=== PATIENT | female | born 1950 | race Caucasian/White ===

== ENCOUNTER 2017-05-14 16:33 | Observation (INO) | payer BC, OTHER ==
[2017-05-14] MEDS ORDERED: NITROGLYCERIN SL TABS 0.4 MG TAB SUBLINGUAL STA ×3 (16:58)
[2017-05-14] MEDS ORDERED: ASPIRIN 81 MG PO STA (16:58)
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
[2017-05-14 17:18] LABS: Basophils % (A) 0 %; Eosinophils # (A) 0.3 k/uL (0-0.7); Eosinophils % (A) 3 %; HCT 40.3 % (34.0-46.0); HGB 13.4 gm/dL (11.4-16.0); Lymphocytes # (A) 2.2 k/uL (1.0-4.8); Lymphocytes % (A) 27 %; MCH 30.6 pg (25.0-35.0); MCHC 33.1 g/dL (31.0-37.0); MCV 92.3 fL (80.0-100.0); Mean Platelet Volume 6.8; Monocytes # (A) 0.5 k/uL (0-1.0); Monocytes % (A) 6 %; Neutrophils # (A) 5.1 k/uL (1.3-7.7); Neutrophils % (A) 62 %; Platelet Count 340 k/uL (150-450); RBC 4.36 m/uL (3.80-5.40); RDW 12.6 % (11.5-15.5); WBC 8.3 k/uL (3.8-10.6)
[2017-05-14 17:26] LABS: D-Dimer 0.2 mg/L FEU (<0.60)
[2017-05-14 17:29] LABS: ALT 31 U/L (9-52); AST 22 U/L (14-36); Alkaline Phosphatase 82 U/L (38-126); Anion Gap 9 mmol/L; Blood Urea Nitrogen 12 mg/dL (7-17); Calcium 9.6 mg/dL (8.4-10.2); Carbon Dioxide 24 mmol/L (22-30); Chloride 104 mmol/L (98-107); Glucose 86 mg/dL (74-99); Magnesium 1.6 mg/dL (1.6-2.3); Sodium 137 mmol/L (137-145); Total Bilirubin 0.3 mg/dL (0.2-1.3); Total Protein 6.5 g/dL (6.3-8.2)
[2017-05-14 17:30] LABS: Potassium 4.2 mmol/L (3.5-5.1)
[2017-05-14 17:34] LABS: Creatine Kinase 126 U/L (30-135)
[2017-05-14 17:46] LABS: Creatine Kinase MB 1.2 ng/mL (0.0-2.4); Troponin I <0.012 ng/mL (0.000-0.034)
[2017-05-14 17:57] LABS: Partial Thromboplastin Time 25.8 sec (22.0-30.0); Prothrombin Time 9.8 sec (9.0-12.0)
--- NOTE | 2017-05-14 18:37 | XR ---
EXAMINATION: XR chest 2V DATE AND TIME: 05/14/2017 6:11 PM ORDERING PROVIDER: Reece Burnham DO CLINICAL INDICATION: Chest Pain TECHNIQUE: PA and lateral COMPARISON: None. DESCRIPTION: The lungs are clear. The pleural spaces are negative. Sutures and mediastinal clips and EKG leads noted. The cardiac silhouette is mildly enlarged. The med iastinal and pleural silhouettes are unremarkable. The skeletal structures are intact without focal findings. The soft tissues are unremarkable. IMPRESSION: 1. NO ACUTE PROCESS. 2. Mildly enlarged cardiac silhouette with sternal sutures and mediastinal clips.
[2017-05-14] MEDS ORDERED: NITROGLYCERIN SL TABS 0.4 MG TAB SUBLINGUAL PRN (18:48)
[2017-05-14 20:47] VITALS: BMI 38.2
[2017-05-14 23:10] LABS: Creatine Kinase 96 U/L (30-135)
[2017-05-14] MEDS ORDERED: HYDROcodone/APAP 7.5-325MG 1 EACH TAB PO PRN (23:12)
[2017-05-14 23:22] LABS: Creatine Kinase MB 0.9 ng/mL (0.0-2.4); Troponin I <0.012 ng/mL (0.000-0.034)
[2017-05-14] MEDS: ATENOLOL 25 MG TAB PO SCH (23:41)
[2017-05-14] MEDS: FLECAINIDE 50 MG TAB PO SCH (23:42)
[2017-05-14] MEDS: APIXABAN 5 MG TAB PO SCH (23:42)
[2017-05-14] MEDS: metFORMIN 500 MG TAB PO SCH (23:42)
[2017-05-15] MEDS ORDERED: ALPRAZolam 0.25 MG TAB PO PRN (00:50)
[2017-05-15] MEDS ORDERED: TEMAZEPAM 15 MG CAP PO PRN (00:50)
[2017-05-15] MEDS ORDERED: DENOSUMAB 60 MG/ML 1 ML SYRINGE SQ SCH (01:00)
[2017-05-15] MEDS ORDERED: EVOLOCUMAB 140 MG SQ SCH (01:00)
[2017-05-15] MEDS: NITROGLYCERIN OINT 1 INCH/GM PACKET TOPICAL SCH ×3 (03:20→12:32)
[2017-05-15 04:56] LABS: Creatine Kinase 83 U/L (30-135)
[2017-05-15 05:02] LABS: Cholesterol 127 mg/dL (<200); HDL Cholesterol 69 mg/dL (40-60); LDL Cholesterol,Calculated 45 mg/dL (0-99); Triglycerides 64 mg/dL (<150)
[2017-05-15 05:08] LABS: Creatine Kinase MB 0.7 ng/mL (0.0-2.4); Troponin I <0.012 ng/mL (0.000-0.034)
--- NOTE | 2017-05-15 05:34 | HP ---
HISTORY AND PHYSICAL DATE OF SERVICE: 05/14/2017 CHIEF COMPLAINT: Chest pain. HISTORY OF PRESENT ILLNESS: This 66-year-old woman with a past history of asthma, atrial fibrillation, chest pain, CVA, GERD, hypertension, hyperlipidemia, history of ASD repair being followed by Dr. Quijano in the outpatient setting complaining of chest pain since this morning. The pain is waxing and waning and in the central part of the chest, left-sided chest and the pain is also associated with EKG changes. The patient was taken to emergency room and was admitted for further evaluation. Pain intensity was 6 out of 10. Otherwise, there is no history any fevers, rigors, chills at this time. The EKG shows some ST-T changes. The patient also reports significant stress associated with work at this time. There is no history of fever, rigors, chills at this time. PAST MEDICAL HISTORY: Atrial fibrillation, asthma, ASD repair, GERD, hypertension, hyperlipidemia, history of diarrhea, history of stroke. MEDICATIONS: Prior to admission home medications are: 1. Glucophage 500 mg p.o. b.i.d. 2. Lamisil 250 mg. 3. Aldactone 25 mg p.o. daily. 4. Nifedipine ER 30 mg p.o. daily. 5. Multivitamins 1 p.o. daily. 6. Mobic 50 mg p.r.n. 7. [place] 7.5 q.6h p.r.n. 8. Advair 250, 1 puff b.i.d. 9. Tambocor 50 mg p.o. b.i.d. 10.Prozac 40 mg p.o. daily. 11.Repatha 140 mg subcu 14 days. 12.Nexium 40 mg p.o. daily. 13.Prolia 1 dose 180 days. 14.Vitamin B12 500 mcg p.o. daily. 15.Vitamin D3 2000 daily. 16.Calcium 600 mg p.o. daily. 17.Tenormin 25 mg p.o. b.i.d. 18.Aspirin 81 mg p.o. daily. 19.Eliquis 5 mg p.o. b.i.d. ALLERGIES: BEE VENOM and TETRACYCLINE. FAMILY HISTORY: History of cerebrovascular accident and transient ischemic attack in the family. SOCIAL HISTORY: No history of smoking, no history of alcohol. REVIEW OF SYSTEMS: ENT: No diminished hearing or vision. CARDIOVASCULAR: As mentioned. RESPIRATORY: As mentioned. GI: No nausea. : No dysuria. NERVOUS SYSTEM: No numbness or weakness. ALLERGY/IMMUNOLOGY: As mentioned. MUSCULOSKELETAL: As mentioned. HEMATOLOGY: No history of anemia. ENDOCRINE: As mentioned earlier. CONSTITUTIONAL: As mentioned earlier. DERMATOLOGY: Negative. RHEUMATOLOGY: Negative. PSYCHIATRY: As mentioned earlier. PHYSICAL EXAMINATION: The patient is alert and oriented x3. Pulse 73, blood pressure 140/70, respiration 17, temperature 98 degrees, pulse ox 97% on room air. HEENT: Conjunctivae normal. NECK: No jugular venous distention. CARDIOVASCULAR: S1, S2. RESPIRATORY: Breath sounds diminished in the bases. No rhonchi, no crackles. ABDOMEN: Soft, nontender. No mass palpable. LEGS: No edema, no swelling. NERVOUS SYSTEM: Higher function as mentioned earlier. Moves all four limbs. No focal motor deficits. LYMPHATICS: No lymphadenopathy in the neck, axillae, groin. SKIN: No ulcers, rash, bleeding. LAB STUDIES: CBC and BMP within normal limits. EKG noted. ASSESSMENT: 1. Chest pain possible unstable angina. 2. History atrial fibrillation. 3. History of ASD repair. 4. History of asthma. 5. History of cerebrovascular accident, transient ischemic attack. 6. Gastroesophageal reflux disease. 7. Hypertension. 8. Hyperlipidemia. 9. History of social stressors. 10.History of diarrhea. 11.History of possible von Willebrand disease. 12.History of breast surgery. 13.History of motion sickness. 14.History of depression. RECOMMENDATIONS AND DISCUSSION: This 66-year-old woman who presented with multiple complex medical issues, will monitor the patient closely. Continue the current management and symptomatic treatment. Will will resume the home medications. Cardiology consultation to rule out myocardial infarction. Otherwise I would also recommend the possible stress test also. The patient's medical technologist chemistry is Dr. Haywood from [place] according to her. Otherwise D-dimer is also negative. I would recommend UA with micro. Prognosis guarded because of multiple complex medical issues. Further recommendations to follow. Copy of dictation forwarded to Dr. Quijano who is the primary physician. Discussed with the patient and understands and agrees. MMODL / IJN: [id number] /
[2017-05-15] MEDS ORDERED: PANTOPRAZOLE 40 MG TABLET PO SCH (07:30)
[2017-05-15] MEDS ORDERED: SYMBICORT 80-4.5 MCG INHALER INHALATION SCH (08:00)
[2017-05-15] MEDS ORDERED: REGADENOSON 0.4 MG/5 ML SYRINGE IV ONE (08:44)
[2017-05-15] MEDS ORDERED: AMINOPHYLLINE 500 MG/20 ML VIAL IV PRN (08:44)
[2017-05-15 08:52] LABS: Amorphous Sediment,Urine Rare /hpf; Appearance,Urine Cloudy (Clear); Bacteria,Urine Many /hpf; Bilirubin,Urine Negative (Negative); Blood,Urine Trace (Negative); Color,Urine Yellow; Glucose,Urine (UA) Negative (Negative); Ketones,Urine Negative (Negative); Leukocyte Esterase,Urine Small (Negative); Mucus,Urine Occasional /hpf; Nitrite,Urine Positive (Negative); PH, Urine 6.5 (5.0-8.0); Protein,Urine Negative (Negative); RBC,Urine 3 /hpf (0-5); Specific Gravity,Urine 1.012 (1.001-1.035); Squamous Epithelial Cell,Urine 2 /hpf (0-4); Urobilinogen,Urine <2.0 mg/dL (<2.0); WBC,Urine 5 /hpf (0-5)
[2017-05-15] MEDS ORDERED: SPIRONOLACTONE 25 MG TAB PO SCH (09:00)
[2017-05-15] MEDS ORDERED: MELOXICAM 7.5 MG TAB PO SCH (09:00)
[2017-05-15] MEDS ORDERED: TERBINAFINE 250 MG TAB PO SCH (09:00)
[2017-05-15] MEDS ORDERED: MULTIVITAMINS, THERA 1 EACH TAB PO SCH (09:00)
[2017-05-15] MEDS ORDERED: FLUoxetine HCL 20 MG CAP PO SCH (09:00)
[2017-05-15] MEDS ORDERED: CALCIUM CARBONATE 500 MG CHEWABLE PO SCH (09:00)
[2017-05-15] MEDS ORDERED: NIFEdipine XL 30 MG TAB.ER.24 PO SCH (09:00)
[2017-05-15] MEDS ORDERED: CHOLECALCIFEROL 1,000 UNIT TAB PO SCH (09:00)
[2017-05-15] MEDS ORDERED: ASPIRIN 325 MG TAB PO SCH (09:00)
[2017-05-15] MEDS ORDERED: CYANOCOBALAMIN 500 MCG TAB PO SCH (09:00)
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
[2017-05-15] MEDS ORDERED: AMINOPHYLLINE 500 MG/20 ML VIAL IV ONE (10:45)
[2017-05-15] MEDS: INSULIN ASPART 100 UNIT/ML 1 ML 10 ML VIAL SQ SCH ×2 (12:07→12:32)
--- NOTE | 2017-05-15 12:20 | EST ---
EXERCISE STRESS DATE OF SERVICE: 05/15/2017 AGE: 66 SEX: Female HT: 64" WT: 223 pounds PROTOCOL: Lexiscan Cardiolite STAGE: DURATION OF EXERCISE: HEART RATE REST: 62 BLOOD PRESSURE REST: 155/78 MAXIMUM HEART RATE ACHIEVED: 78 MAXIMUM BLOOD PRESSURE: 174/92 85% MPHR: 133 100% MPHR: 156 METS: INDICATIONS: Chest pressure. CLINICAL INFORMATION: Baseline EKG revealed normal sinus rhythm without significant ST-T changes. With Lexiscan administration, heart rate changed from 62 to 78 beats per minute. Blood pressure changed from 150/78 to 174/92, and then came back to baseline. EKG was unremarkable. Patient did not have any significant symptoms. By EKG criteria, this is an unremarkable Lexiscan stress test. The nuclear scan results, which are more pertinent, will be reported by the radiologist. SUJEY / SEBASTIEN: [id number] /
[2017-05-15] MEDS: FLECAINIDE 50 MG TAB PO SCH (12:31)
[2017-05-15] MEDS: APIXABAN 5 MG TAB PO SCH (12:31)
[2017-05-15] MEDS: ATENOLOL 25 MG TAB PO SCH (12:31)
[2017-05-15] MEDS: metFORMIN 500 MG TAB PO SCH (12:32)
--- NOTE | 2017-05-15 12:40 | NM ---
EXAMINATION TYPE: NM stress lexiscan cardiolite DATE OF EXAM: 05/15/2017 COMPARISON: NONE HISTORY: Chest pain TECHNIQUE: After the intravenous administration of 10.3 mCi Tc 99m Sestamibi - Cardiolite resting SP ECT images acquired 45 minutes post injection. The patient received 0.4mg Lexiscan, 26.6 mCi Tc 99m Sestamibi - Stress images obtained [address] injection FINDINGS: Review of stress and rest SPECT images demonstrates no distinct perfusion abnormality. Gated analysi s shows normal wall motion with an estimated left ventricular ejection fraction of 70 %. IMPRESSION: No scintigraphic evidence for reversible ischemia.
[2017-05-15 13:13] VITALS: BP 152/78; PULSE 73; RESP 17; TEMP 97.9
[2017-05-15 15:17] LABS: Hemoglobin A1C 5.8 % (4.0-6.0)
--- NOTE | 2017-05-16 05:28 | DS ---
DISCHARGE SUMMARY DATE OF SERVICE: 05/15/2017. FINAL DIAGNOSES: 1. Chest pain, possibly musculoskeletal, negative stress test. 2. History atrial fibrillation. 3. History ASD repair. 4. History of asthma. 5. History of cerebrovascular accident, transient ischemic attack. 6. History of gastroesophageal reflux disease. 7. Hypertension. 8. Hyperlipidemia. 9. Social stressors. 10.History of diarrhea. 11.History of possible von Willebrand disease. 12.History of breast surgery. 13.History of motion sickness. 14.History of depression. DISCHARGE DISPOSITION: The patient will be discharged in stable condition with guarded prognosis. Discharge cleared by Cardiology. HISTORY OF PRESENT ILLNESS: This 66-year-old woman with a past medical history of multiple medical problems admitted with chest pain. Myocardial infarction ruled out. Cardiology performed a stress test, which was Lexiscan stress test was negative and the patient is being discharged in a stable condition with guarded prognosis. On exam, vitals are stable. CARDIOVASCULAR: S1 and S2 muffled. ABDOMEN: Soft. NERVOUS SYSTEM: No focal deficits. DISCHARGE ADVICE AND MEDICATIONS: 1. Diet is cardiac. 2. Activity limited until followup. 3. Follow up with Dr. Quijano in 2 to 3 days. 4. Follow up with Cardiology as recommended. MEDICATIONS: 1. Eliquis 5 mg p.o. b.i.d. 2. Aspirin 81 mg p.o. daily. 3. Tenormin 25 mg p.o. b.i.d. 4. Calcium carbonate 600 mg p.o. daily. 5. Vitamin D3, 2000 daily. 6. Vitamin B-12, 500 mcg p.o. daily. 7. Prolia 60 mg q.180 days. 8. Esomeprazole 40 mg p.o. daily. 9. Evolocumab 140 mg subcu 14 days. 10.Tambocor 50 mg p.o. b.i.d. 11.Prozac 40 mg p.o. daily. 12.Fluticasone, Advair, 1 puff . 13.Terrell 7.5 q.6 p.r.n. 14.Mobic 15 mg p.o. daily. 15.Glucophage 500 mg p.o. b.i.d. 16.Multivitamins with calcium 1 p.o. daily. 17.Nifedipine ER 30 mg p.o. daily. 18.Aldactone 25 mg p.o. daily. 19.Lamisil 250 mg p.o. daily. Once again, the patient will be discharged in stable condition with guarded prognosis. SUJEY / SEBASTIEN: [id number] / MTDD
--- NOTE | 2017-05-16 11:28 | ECHOF ---
Referral Reason:cp MEASUREMENTS -------- HEIGHT: 162.6 cm WEIGHT: 101.2 kg BP: 145/84 RVIDd: 3.4 cm (< 3.3) IVSd: 1.2 cm (0.6 - 1.1) LVIDd: 4.5 cm (3.9 - 5.3) LVPWd: 1.2 cm (0.6 - 1.1) IVSs: 1.5 cm LVIDs: 3.2 cm LVPWs: 1.6 cm LA Diam: 4.0 cm (2.7 - 3.8) LAESV Index (A-L): 31.55 ml/m Ao Diam: 3.4 cm (2.0 - 3.7) AV Cusp: 1.9 cm (1.5 - 2.6) MV EXCURSION: 12.842 mm (> 18.000) MV EF SLOPE: 38 mm/s (70 - 150) EPSS: 1.0 cm MV E Satish: 0.73 m/s MV DecT: 484 ms MV A Satish: 0.98 m/s MV E/A Ratio: 0.74 RAP: 5.00 mmHg RVSP: 35.64 mmHg FINDINGS -------- Sinus rhythm. This was a technically good study. The left ventricular size is normal. There is borderline concentric left ventricular hypertrophy. Overall left ventricular systolic function is normal with, an EF between 55 - 60 %. The right ventricle is mildly enlarged. LA is midly dilated 29-33ml/m2. The right atrium is normal in size. Thickend atrial septum. History of ASD repair There is mild aortic valve sclerosis. The mitral valve leaflets are mildly thickened. Mild mitral annular calcification present. There is trace to mild mitral regurgitation. Mild tricuspid regurgitation present. There is mild pulmonary hypertension. The right ventricular systolic pressure, as measured by Doppler, is 35.64mmHg. Trace/mild (physiologic) pulmonic regurgitation. The aortic root size is normal. Normal inferior vena cava with normal inspiratory collapse consistent with estimated right atrial pre ssure of 5 mmHg. There is no pericardial effusion. CONCLUSIONS -------- 1. Sinus rhythm. 2. This was a technically good study. 3. The left ventricular size is normal. 4. There is borderline concentric left ventricular hypertrophy. 5. Overall left ventricular systolic function is normal with, an EF between 55 - 60 %. 6. The right ventricle is mildly enlarged. 7. LA is midly dilated 29-33ml/m2. 8. The right atrium is normal in size. 9. Thickend atrial septum. History of ASD repair 10. There is mild aortic valve sclerosis. 11. The mitral valve leaflets are mildly thickened. 12. Mild mitral annular calcification present. 13. There is trace to mild mitral regurgitation. 14. Mild tricuspid regurgitation present. 15. There is mild pulmonary hypertension. 16. The right ventricular systolic pressure, as measured by Doppler, is 35.64mmHg. 17. Trace/mild (physiologic) pulmonic regurgitation. 18. The aortic root size is normal. 19. Normal inferior vena cava with normal inspiratory collapse consistent with estimated right atrial pressure of 5 mmHg. 20. There is no pericardial effusion. WAREHOUSE ORDER SELECTOR: Shadia Mccarthy RDCS
== END 2017-05-15 15:41 | disposition home or self-care (01) ==
LOC: EC 16:33 → 3OBS 18:48
PROVIDERS: ADMIT Hospitalist; ATTEND Hospitalist
DX: R07.89 Other chest pain (principal); I48.0 Paroxysmal atrial fibrillation; J45.909 Unspecified asthma, uncomplicated; K21.9 Gastro-esophageal reflux disease without esophagitis; I10 Essential (primary) hypertension; E78.5 Hyperlipidemia, unspecified; R19.7 Diarrhea, unspecified; R06.02 Shortness of breath; R20.2 Paresthesia of skin; F32.9 Major depressive disorder, single episode, unspecified; Z86.73 Personal history of transient ischemic attack (TIA), and cerebral infarction without residual deficits; F43.9 Reaction to severe stress, unspecified; R94.31 Abnormal electrocardiogram [ECG] [EKG]; R61 Generalized hyperhidrosis; R06.00 Dyspnea, unspecified; Z95.1 Presence of aortocoronary bypass graft; Z87.74 Personal history of (corrected) congenital malformations of heart and circulatory system; Z79.82 Long term (current) use of aspirin; Z79.51 Long term (current) use of inhaled steroids; Z79.899 Other long term (current) drug therapy; Z79.84 Long term (current) use of oral hypoglycemic drugs; Z79.01 Long term (current) use of anticoagulants; Z79.1 Long term (current) use of non-steroidal anti-inflammatories (NSAID); Z88.1 Allergy status to other antibiotic agents; Z91.030 Bee allergy status
CPT/HCPCS: 99285; 36415; 94640; 93005; 93017; 93306; 85379; 83880; 80061; 80053; 82550 ×2; 82553 ×2; 83735; 84484 ×2; 85025; 85610; 85730; 81001; 83036; 71046; 78452; G0378 ×2; A9500; J0280; J2785; J0897

== ENCOUNTER → 2017-06-08 | Outpatient (CLI) | payer OTHER ==
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
== END | disposition home or self-care (01) ==
LOC: RADXRMAIN 14:54
PROVIDERS: ATTEND Physician Assistant
DX: S22.41XA Multiple fractures of ribs, right side, initial encounter for closed fracture (principal)

== ENCOUNTER → 2017-07-31 | Outpatient (CLI) | payer OTHER ==
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
== END | disposition home or self-care (01) ==
LOC: RADXRMAIN 16:58
PROVIDERS: ATTEND Internal Medicine
DX: S22.43XD Multiple fractures of ribs, bilateral, subsequent encounter for fracture with routine healing (principal); M95.4 Acquired deformity of chest and rib
CPT/HCPCS: 71111

== ENCOUNTER → 2017-08-06 | Outpatient (CLI) | payer BC, OTHER ==
[~2017-08-06] MED LIST: DENOSUMAB 60 MG/ML 1 ML SYRINGE SQ ONE
[2017-08-06 10:00] VITALS: BP 147/84; PULSE 80; RESP 16; TEMP 98
== END | disposition home or self-care (01) ==
LOC: PROCWHC3 09:44
PROVIDERS: ATTEND Internal Medicine
DX: M81.0 Age-related osteoporosis without current pathological fracture (principal)
CPT/HCPCS: 96372; J0897

== ENCOUNTER → 2017-09-19 | Outpatient (CLI) | payer BC, OTHER ==
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
== END | disposition home or self-care (01) ==
LOC: RADXRMAIN 12:30
PROVIDERS: ATTEND Internal Medicine
DX: M95.4 Acquired deformity of chest and rib (principal); J98.11 Atelectasis; J92.9 Pleural plaque without asbestos
CPT/HCPCS: 71110

== ENCOUNTER 2017-10-17 06:45 | Day surgery (SDC) | payer BC, OTHER ==
[2017-10-15 15:32] VITALS: BMI 37.9
[~2017-10-17 06:45] MED LIST changes: -DENOSUMAB 60 MG/ML 1 ML SYRINGE SQ ONE; +LACTATED RINGERS 1,000 ML IV SCH; +LIDOCAINE 1% 20 ML VIAL (10MG/ML) FOR IV START INTRADERMA PRN
[2017-10-17 07:28] VITALS: TEMP 98.6
[2017-10-17 07:37] LABS: Glucose,Whole Blood 119 mg/dL (75-99)
[2017-10-17] MEDS ORDERED: LIDOCAINE 1% INJ 10MG/ML (20 ML MDV) ONE (07:39)
[2017-10-17] MEDS ORDERED: PROPOFOL 10 MG/ML 20 ML VIAL IV ONE (07:39)
--- NOTE | 2017-10-17 08:11 | P.PCN ---
Date of Procedure: 10/17/17 Procedure(s) Performed: Brief history: Patient is a pleasant 66-year-old white female, scheduled for an elective upper endoscopy as well as colonoscopy as a part of evaluation of evaluation of long- standing history of GERD and Hemoccult-positive stool. She is being maintained on Nexium 20 mg daily for several years. Procedure performed: Esophagogastroduodenoscopy with biopsy Colonoscopy with snare polypectomy Preoperative diagnosis: GERD Hemoccult-positive stool Anesthesia: MAC Procedure: After informed consent was obtained from the patient was brought into the endoscopy unit and IV sedation was administered by anesthesia under continuous monitoring. Initially upper endoscopy was done. The Olympus GF 160 video endoscope was inserted inserted into the mouth and esophagus intubated without any difficulty and was gradually advanced into the stomach and duodenum and carefully examined. The bulb and second part of the duodenum appeared normal. The scope was then withdrawn into the stomach adequately insufflated with air and upon careful examination the antrum had a small submucosal polyp measuring 5 mm in size which was biopsied. There are multiple small gastric polyps were seen between 5 mm to 1 cm in size noted in the gastric body some of which were biopsied. The cardia and fundus appeared normal. The scope was then withdrawn into the esophagus. Very small sliding Hiatal hernia noted. The GE junction was located at 40 cm to the incisors. It appeared regular with no erythema erosions or ulcerations. Rest of the esophagus appeared normal. Patient tolerated the procedure well. At this time the patient continued to remain sedation. Initial digital rectal examination was normal. Olympus CF 160 video colonoscope was then inserted into the rectum and gradually advanced to the cecum without any difficulty. Careful examination was performed as the scope was gradually being withdrawn. The prep was excellent. In the base of the cecum there was a 5 mm and 7 mm sessile polyp status post polypectomy. The cecum, ascending colon, transverse colon, appeared normal. In the descending colon there was a 1.5 cm broad-based polyp removed by snare polypectomy. In the sigmoid colon there was a 5 mm polyp removed by snare polypectomy. Moderate sigmoid diverticula seen. Rest of the descending colon, sigmoid colon and rectum appeared normal. Retroflexion was performed in the rectum and no lesions were noted. Patient tolerated the procedure well. Impression: 1. Upper endoscopy revealed multiple small gastric polyps and small hiatal hernia 2. Colonoscopy revealed: a) 5 mm and 7 mm sessile cecal polyp status post polypectomy b) 1.5 cm broad-based descending colon polyp status post polypectomy c) 5 mm sigmoid colon polyp status post polypectomy d) scattered sigmoid diverticulosis Recommendations: Findings of this examination were discussed with the patient as well as her family. She was advised to follow with the biopsy results. If the biopsy shows a tubal adenoma, she can have a repeat colonoscopy in 3 years. She will continue with Nexium 20 mg daily and follow anti-reflex measures, GERD symptoms
[2017-10-17 08:32] VITALS: BP 147/81; PULSE 65; RESP 18
[2017-10-17] MEDS ORDERED: ONDANSETRON 4 MG/2 ML VIAL IVP ONE ×2 (09:00→09:25)
== END 2017-10-17 10:01 | disposition home or self-care (01) ==
LOC: ORWHC2ENDO 06:45
PROVIDERS: ATTEND Internal Medicine Gastroenterology
DX: D12.4 Benign neoplasm of descending colon (principal); D12.0 Benign neoplasm of cecum; K29.50 Unspecified chronic gastritis without bleeding; K21.9 Gastro-esophageal reflux disease without esophagitis; K44.9 Diaphragmatic hernia without obstruction or gangrene; K57.30 Diverticulosis of large intestine without perforation or abscess without bleeding; I10 Essential (primary) hypertension; E78.5 Hyperlipidemia, unspecified; J44.9 Chronic obstructive pulmonary disease, unspecified; K31.7 Polyp of stomach and duodenum; E11.9 Type 2 diabetes mellitus without complications; M19.90 Unspecified osteoarthritis, unspecified site; F32.9 Major depressive disorder, single episode, unspecified; Z79.84 Long term (current) use of oral hypoglycemic drugs; Z79.01 Long term (current) use of anticoagulants; Z79.1 Long term (current) use of non-steroidal anti-inflammatories (NSAID); Z79.899 Other long term (current) drug therapy; Z95.1 Presence of aortocoronary bypass graft; Z86.73 Personal history of transient ischemic attack (TIA), and cerebral infarction without residual deficits
CPT/HCPCS: 88305; 45385; 43239; J2405; J2001; J2704

== ENCOUNTER 2018-10-05 09:35 | Emergency (ER) | payer BC, MEDICARE, OTHER ==
[2018-10-05] MEDS ORDERED: DEXAMETHASONE SOD PHOSPHATE 4 MG/ML 1 ML VIAL IV STA (09:44)
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
[2018-10-05] MEDS ORDERED: CLINDAMYCIN 300 MG in DEXTROSE 5% IN WATER 50 ML IVPB STA ×2 (09:47)
[2018-10-05 10:26] LABS: Basophils % (A) 0 %; Eosinophils # (A) 0.3 k/uL (0-0.7); Eosinophils % (A) 2 %; HGB 14.4 gm/dL (11.4-16.0); Lymphocytes % (A) 14 %; MCH 32.3 pg (25.0-35.0); MCHC 33.6 g/dL (31.0-37.0); MCV 96.4 fL (80.0-100.0); Mean Platelet Volume 6.3; Monocytes # (A) 0.8 k/uL (0-1.0); Monocytes % (A) 6 %; Neutrophils # (A) 11.1 k/uL (1.3-7.7); Neutrophils % (A) 77 %; Platelet Count 330 k/uL (150-450); RBC 4.47 m/uL (3.80-5.40); RDW 12.8 % (11.5-15.5); WBC 14.4 k/uL (3.8-10.6)
[2018-10-05 10:38] LABS: African American GFR (CKD) >90 (>60 ml/min/1.73 sqM); Albumin 3.6 g/dL (3.5-5.0); Anion Gap 8 mmol/L; Blood Urea Nitrogen 9 mg/dL (7-17); Calcium 9.3 mg/dL (8.4-10.2); Carbon Dioxide 24 mmol/L (22-30); Chloride 105 mmol/L (98-107); Glucose 113 mg/dL (74-99); Non-African American GFR(CKD) >90 (>60 ml/min/1.73 sqM); Sodium 137 mmol/L (137-145); Total Bilirubin 0.8 mg/dL (0.2-1.3); Total Protein 6.3 g/dL (6.3-8.2)
[2018-10-05 10:41] LABS: ALT 25 U/L (9-52); AST 30 U/L (14-36); Alkaline Phosphatase 70 U/L (38-126); Potassium 4.4 mmol/L (3.5-5.1)
--- NOTE | 2018-10-05 11:08 | CT ---
EXAMINATION TYPE: CT soft tissue neck w con DATE OF EXAM: 10/05/2018 10:57 AM COMPARISON: None HISTORY: Rt Neck pain and swelling CT DLP: 244.6 mGycm Automated exposure control for dose reduction was used. CONTRAST: CT scan of the neck is performed following with IV Contrast, patient injected with 100 mL of Isovue 3 00. Axial images are obtained, coronal and sagittal reformatted images are reviewed. FINDINGS: Lung apices are clear. Hypertrophic and degenerative change of the vertebral column. Athero sclerotic change of the carotid vasculature. There is asymmetric appearance of the right submandibular gland which appears to be enlarged. Right p eritonsillar fullness on the right is also noted. Area of low attenuation on axial image 54 in the ri ght peritonsillar region measuring 11 mm which could been the basis of a small peritonsillar abscess or necrotic lesion. Shotty adenopathy noted in the right carotid space measuring short axis is 8 mm. Parotid gland has a normal appearance. Thyroid gland enhances normally. Nasopharynx is symmetric. Int raorbital and intracranial structures visualized are symmetric. Airways patent. Subcentimeter right t hyroid nodule noted. Sternotomy wires are noted. IMPRESSION: 1. There is asymmetric right peritonsillar soft tissue fullness within 11 mm area of reduced attenuat ion on axial image 54 which could represent a peritonsillar abscess. Necrotic neoplasm in the differe ntial diagnosis. Correlate clinically. 2. There is asymmetric enlargement of the right submandibular gland correlate for sialoadenitis.
[2018-10-05 12:28] VITALS: BP 145/87; PULSE 75; RESP 13
[2018-10-05 12:52] VITALS: TEMP 97.6
== END 2018-10-05 12:45 | disposition home or self-care (01) ==
LOC: EC 09:35
DX: J36 Peritonsillar abscess (principal); G52.3 Disorders of hypoglossal nerve; F32.9 Major depressive disorder, single episode, unspecified; K21.9 Gastro-esophageal reflux disease without esophagitis; J45.909 Unspecified asthma, uncomplicated; I10 Essential (primary) hypertension; E78.5 Hyperlipidemia, unspecified; I48.91 Unspecified atrial fibrillation; I25.119 Atherosclerotic heart disease of native coronary artery with unspecified angina pectoris; E11.9 Type 2 diabetes mellitus without complications; D68.0 Von Willebrand disease; Z79.01 Long term (current) use of anticoagulants; Z79.82 Long term (current) use of aspirin; Z79.51 Long term (current) use of inhaled steroids; Z79.84 Long term (current) use of oral hypoglycemic drugs; Z79.899 Other long term (current) drug therapy; Z88.1 Allergy status to other antibiotic agents; Z91.030 Bee allergy status; Z95.1 Presence of aortocoronary bypass graft; Z96.643 Presence of artificial hip joint, bilateral; Z86.73 Personal history of transient ischemic attack (TIA), and cerebral infarction without residual deficits
CPT/HCPCS: 96365; 96375; 99284; 36415; 80053; 85025; 87081; 87430; 70491; J1100; Q9967

== ENCOUNTER → 2020-05-03 | Outpatient (CLI) | payer MEDICARE, OTHER ==
--- NOTE | 2020-05-04 14:52 | MM ---
Reason for exam: screening (asymptomatic). Last mammogram was performed 9 years and 1 month ago. History: Reductions of both breasts, 1997. Physical Findings: A clinical breast exam by your physician is recommended on an annual basis and results should be correlated with mammographic findings. MG 3D Screening Mammo W/Cad Bilateral CC and MLO view(s) were taken. Prior study comparison: April 13, 2011, bilateral digital screening mammo w/CAD. The breast tissue is almost entirely fat. No significant changes when compared with prior studies. ASSESSMENT: Benign, BI-RAD 2 RECOMMENDATION: Routine screening mammogram of both breasts in 1 year.
== END | disposition home or self-care (01) ==
LOC: RADMAMWWP 15:12
PROVIDERS: ATTEND Internal Medicine
DX: Z12.31 Encounter for screening mammogram for malignant neoplasm of breast (principal)
CPT/HCPCS: 77063; 77067

== ENCOUNTER → 2021-03-04 | Outpatient (CLI) | payer MEDICARE, OTHER ==
[2021-03-05 00:24] LABS: Basophils # (A) 0.03 X 10*3/uL (0.00-0.10); Basophils % (A) 0.3 %; Eosinophils % (A) 1.1 %; HCT 46.2 % (37.2-46.3); HGB 15.3 g/dL (12.0-15.0); Lymphocytes # (A) 2.76 X 10*3/uL (0.90-5.00); Lymphocytes % (A) 29.4 %; MCH 32.2 pg (27.0-32.0); MCHC 33.1 g/dL (32.0-37.0); MCV 97.3 fL (80.0-97.0); Mean Platelet Volume 9.2 fL (9.5-12.2); Monocytes # (A) 0.73 X 10*3/uL (0.20-1.00); Monocytes % (A) 7.8 %; Neutrophils # (A) 5.73 X 10*3/uL (1.80-7.70); Neutrophils % (A) 61.1 %; Platelet Count 391 X 10*3/uL (140-440); RBC 4.75 X 10*6/uL (4.10-5.20); RDW 12.8 % (11.5-14.5); WBC 9.38 X 10*3/uL (4.50-10.00)
[2021-03-05 02:46] LABS: ALT 24 U/L (8-44); AST 21 U/L (13-35); African American GFR (CKD) 96.8 (60.0-200.0); Albumin 4.6 g/dL (3.8-4.9); Albumin/Globulin Ratio 1.81 (1.60-3.17); Alkaline Phosphatase 79 U/L (41-126); BUN/Creat Ratio 14.09 Ratio (12.00-20.00); Blood Urea Nitrogen 10.4 mg/dL (9.0-27.0); Calcium 9.2 mg/dL (8.7-10.3); Carbon Dioxide 22.1 mmol/L (20.0-27.5); Chloride 101 mmol/L (96-109); Chol/HDL Ratio 2.45 Ratio; Globulin 2.6 g/dL (1.6-3.3); Glucose 120 mg/dL (70-110); LDL Cholesterol,Calculated 72.7 mg/dL (0.0-131.0); Non-African American GFR(CKD) 83.5 (60.0-200.0); Potassium 4.8 mmol/L (3.5-5.5); Sodium 138 mmol/L (135-145); Total Protein 7.2 g/dL (6.2-8.2)
== END | disposition home or self-care (01) ==
LOC: LABWHC1 14:39
PROVIDERS: ATTEND Family Medicine
DX: Z00.00 Encounter for general adult medical examination without abnormal findings (principal); E78.5 Hyperlipidemia, unspecified
CPT/HCPCS: 36415; 80053; 80061; 82306; 84439; 84443; 85025

== ENCOUNTER 2022-05-10 07:52 | Day surgery (SDC) | payer MEDICARE, OTHER ==
[2022-05-10 08:34] VITALS: RESP 16; TEMP 97
[2022-05-10 08:44] LABS: Glucose,Whole Blood 130 mg/dL (70-110)
[2022-05-10] MEDS ORDERED: ONDANSETRON 4 MG/2 ML VIAL ONE (08:44)
[2022-05-10] MEDS ORDERED: ONDANSETRON 4 MG/2 ML VIAL IVP ONE (08:46)
[2022-05-10] MEDS ORDERED: LACTATED RINGERS 1,000 ML IV ONE (08:46)
[2022-05-10] MEDS ORDERED: PROPOFOL 10 MG/ML 20 ML VIAL IV ONE (08:52)
--- NOTE | 2022-05-10 09:16 | P.PCN ---
Date of Procedure: 05/10/22 Procedure(s) Performed: BRIEF HISTORY: Patient is a 71-year-old pleasant white female scheduled for an elective colonoscopy as a part of evaluation of prior history of colon polyps. PROCEDURE PERFORMED: Colonoscopy with biopsy. PREOPERATIVE DIAGNOSIS: History of colon polyps. IV sedation per Anesthesia. PROCEDURE: After informed consent was obtained, the patient, was brought into the endoscopy unit. IV sedation was administered by Anesthesia under continuous monitoring. Digital rectal examination was normal. Initially the Olympus CF-160 flexible video colonoscope was then inserted in the rectum, gradually advanced into the cecum with moderate to severe difficulty. Careful examination was per formed as the scope was gradually being withdrawn. Ileocecal valve and the appendiceal orifice were visualized and appeared normal. Prep was excellent. Mucosa of the cecum, ascending colon appeared normal. The transverse colon there was a 3-4 mm sessile polyp removed by cold biopsy. Rest of the, transverse colon, descending colon, sigmoid colon, and rectum appeared normal. Moderate sigmoid diverticulosis. Retroflexion was performed in the rectum and no lesions were seen. The patient tolerated the procedure well. IMPRESSION: 3-4 mm sessile transverse colon polyp status post cold biopsy Moderate sigmoid diverticulosis RECOMMENDATIONS: Findings of this examination were discussed with the patient as well as her family. She was advised to follow with the biopsy results and have a repeat colonoscopy in 5 years..
[2022-05-10 09:38] VITALS: BP 119/76; PULSE 65
== END 2022-05-10 10:11 | disposition home or self-care (01) ==
LOC: ORWHC2ENDO 07:52
PROVIDERS: ATTEND Internal Medicine Gastroenterology
DX: Z12.11 Encounter for screening for malignant neoplasm of colon (principal); D12.3 Benign neoplasm of transverse colon; K57.30 Diverticulosis of large intestine without perforation or abscess without bleeding; I25.10 Atherosclerotic heart disease of native coronary artery without angina pectoris; I48.91 Unspecified atrial fibrillation; I10 Essential (primary) hypertension; J45.909 Unspecified asthma, uncomplicated; D68.0 Von Willebrand disease; Z86.73 Personal history of transient ischemic attack (TIA), and cerebral infarction without residual deficits; Z79.84 Long term (current) use of oral hypoglycemic drugs; Z86.010 Personal history of colon polyps; Z79.51 Long term (current) use of inhaled steroids; Z79.01 Long term (current) use of anticoagulants; Z79.811 Long term (current) use of aromatase inhibitors; Z79.899 Other long term (current) drug therapy
CPT/HCPCS: 73560 ×2; 45380; J2405; J2704; 88305